=== PATIENT | female | born 1945 | race Caucasian/White ===

== ENCOUNTER 2023-12-10 06:07 | Day surgery (SDC) | payer MEDICARE, MEDICAID ==
[2023-12-09 12:11] LABS: BASOPHILS # (AUTO) 0.1 X10'3 (0-0.2); EOSINOPHILS # (AUTO) 0.6 X10'3 (0-0.9); EOSINOPHILS % (AUTO) 5.7 % (0-6); HEMATOCRIT 38.6 % (35.0-45.0); HEMOGLOBIN 12.8 g/dl (12.0-16.0); LYMPHOCYTES # (AUTO) 4.1 X10'3 (1.1-4.8); LYMPHOCYTES % (AUTO) 41.2 % (21-51); MEAN CORPUSCULAR HGB CONC 33.1 g/dL (33.0-36.5); MEAN CORPUSCULAR VOLUME 93.7 FL (78-98); MEAN PLATELET VOLUME 8.4 FL (7.4-10.4); MONOCYTES # (AUTO) 0.8 X10'3 (0-0.9); MONOCYTES % (AUTO) 8.3 % (2-12); NEUTROPHILS # (AUTO) 4.3 X10'3 (1.8-7.7); NEUTROPHILS % (AUTO) 43.8 % (42-75); PLATELET COUNT 264 X10'3 (140-440); RED BLOOD COUNT 4.12 X10'6 (4.20-5.60); RED CELL DISTRIBUTION WIDTH 13.1 % (11.5-14.5); WHITE BLOOD COUNT 9.9 X10'3 (4.5-11.0)
[2023-12-09 12:28] LABS: ANION GAP 13 (8-16); APTT 27 SECONDS (22-32); BLOOD UREA NITROGEN 31 MG/DL (7-18); BUN/CREATININE RATIO 28.7 (10.0-20.0); CHLORIDE 102 MMOL/L (99-107); CREATININE 1.08 MG/DL (0.40-0.90); GLUCOSE 99 MG/DL (70-104); POTASSIUM 4.5 MMOL/L (3.5-5.1); PROTHROMBIN TIME 11.2 SECONDS (9.0-12.0); SODIUM 136 MMOL/L (135-145); TOTAL CARBON DIOXIDE 21.1 MMOL/L (24-32); eGFR 49 ML/MIN
[2023-12-09 12:38] LABS: CALCIUM 12.4 MG/DL (8.5-10.1)
[~2023-12-10] VITALS: Ht 154.9 cm; Wt 73.0 kg
[2023-12-10] VITALS (9 sets, daily range): BP systolic 107–137; BP diastolic 47–75; PULSE 79–101; RESP 10–18; TEMP 97.9; O2SAT 93–98
[2023-12-10] MEDS ORDERED: METO25TA6 PO (06:41)
[2023-12-10] MEDS ORDERED: DULO30CA52 PO (06:41)
[2023-12-10] MEDS ORDERED: POTA-207 PO (06:41)
[2023-12-10] MEDS ORDERED: AMLO5TAB16 PO (06:41)
[2023-12-10] MEDS ORDERED: TOPI-95 PO (06:41)
[2023-12-10] MEDS ORDERED: CARB-17 PO (06:41)
[2023-12-10] MEDS ORDERED: HYDR-3972 PO (06:41)
[2023-12-10] MEDS ORDERED: FURO20TA4 PO (06:41)
[2023-12-10] MEDS ORDERED: GABA-535 PO (06:41)
[2023-12-10] MEDS ORDERED: FOLI1TAB27 PO (06:41)
[2023-12-10] MEDS ORDERED: RIVA10TA PO (06:41)
[2023-12-10] MEDS ORDERED: MAGN400T29 PO (06:55)
[2023-12-10] MEDS ORDERED: MELA3CAP2 PO (06:55)
[2023-12-10] MEDS ORDERED: FERR325T28 PO (06:56)
[2023-12-10] MEDS ORDERED: [UNRECOGNIZED DRUG - CODE] PO (06:58)
[2023-12-10] MEDS ORDERED: MULT-1085 PO (06:58)
[2023-12-10] MEDS ORDERED: midazolam 1 mg/ML 2ml injection ONE (07:45)
[2023-12-10] MEDS ORDERED: ceFAZolin 1000mg inj ONE (07:45)
[2023-12-10] MEDS ORDERED: LIDOcaine 1% W/epiNEPHrine 1:100,000 20ml vial ONE (07:45)
[2023-12-10] MEDS ORDERED: fentaNYL/PF 50MCG/1 ML 2ML syringe ONE (07:45)
[2023-12-10] MEDS ORDERED: HYDROmorphone 1 mg/ml syringe ONE (08:14)
[2023-12-10] MEDS: vancomycin/NS 1 GM ADD-VANTAGE 250 ML X 1 DOSE IV ONE (11:14)
[2023-12-10] MEDS: cefazolin 2gm/D5W 100mL 100 ML IV ONE (11:19)
== END 2023-12-10 13:05 ==
LOC: SSTAY O 06:07
PROVIDERS: ATTEND Internal Medicine Cardiovascular Disease
DX: Z45.010 Encounter for checking and testing of cardiac pacemaker pulse generator [battery] (principal); I42.9 Cardiomyopathy, unspecified; I48.91 Unspecified atrial fibrillation; I11.0 Hypertensive heart disease with heart failure; I50.22 Chronic systolic (congestive) heart failure; I25.10 Atherosclerotic heart disease of native coronary artery without angina pectoris; E78.5 Hyperlipidemia, unspecified; J44.9 Chronic obstructive pulmonary disease, unspecified; I25.2 Old myocardial infarction; Z79.01 Long term (current) use of anticoagulants; Z79.899 Other long term (current) drug therapy; Z98.890 Other specified postprocedural states
CPT/HCPCS: 33227; 36415; 80048; 82310; 85025; 85610; 85730; 93005; 99152; 99153; C1786; J0690; J1170; J2250; J3010; J3370; J3490; J7030; A6449